=== PATIENT | male | born 1995 | race African-American/Black ===

== ENCOUNTER 2022-03-18 13:53 | Emergency (ER) | payer MEDICAID ==
[~2022-03-18] VITALS: Ht 175.3 cm; Wt 89.0 kg
[2022-03-18 14:33] VITALS: BP 114/56
[2022-03-18] MEDS ORDERED: LIDOCAINE HCL 1% 20ML VIAL (Pyxis) INJ INFIL ONE (16:00)
[2022-03-18] MEDS ORDERED: CEFTRIAXONE SODIUM 500 MG/VIAL IM ONE (16:00)
[2022-03-18] MEDS ORDERED: LIDOCAINE HCL 1% 10 MG/ML 10ML VIAL INJ SCH (16:15)
[2022-03-18] MEDS ORDERED: DOXY-326 PO (16:22)
[2022-03-18 16:41] LABS: CLARITY URINE CLEAR (CLEAR); COLOR URINE YELLOW (YELLOW); KETONES URINE NEGATIVE (NEGATIVE); LEUKOCYTE ESTERASE URINE NEGATIVE (NEGATIVE); NITRITE URINE NEGATIVE (NEGATIVE); OCCULT BLOOD URINE NEGATIVE (NEGATIVE); PH URINE 7.5 (4.5-8.0); PROTEIN URINE NEGATIVE (NEGATIVE); SPECIFIC GRAVITY URINE 1.015 (1.005-1.030); UROBILINOGEN URINE 0.2 E.U./dL (0.2-1.0)
[2022-03-21 04:12] LABS: NEISSERIA GONORRHOEAE NAA Negative (Negative)
== END 2022-03-18 16:50 | disposition home or self-care (01) ==
LOC: ER 13:53
DX: N34.2 Other urethritis (principal); Z20.2 Contact with and (suspected) exposure to infections with a predominantly sexual mode of transmission
CPT/HCPCS: 81003; 87491; 87591; 96372; 99283; J0696; J3490

== ENCOUNTER 2024-03-13 10:36 | Emergency (ER) | payer MEDICAID ==
[~2024-03-13] VITALS: Ht 175.3 cm; Wt 84.0 kg
[~2024-03-13 10:36] MED LIST: DOXY100C74 PO
[2024-03-13 10:50] VITALS: O2SAT 98
[2024-03-13 14:02] LABS: CLARITY URINE CLEAR (CLEAR); COLOR URINE YELLOW (YELLOW); GLUCOSE URINE NEGATIVE (NEGATIVE); KETONES URINE 1+ (NEGATIVE); LEUKOCYTE ESTERASE URINE NEGATIVE (NEGATIVE); NITRITE URINE NEGATIVE (NEGATIVE); OCCULT BLOOD URINE NEGATIVE (NEGATIVE); PH URINE 5.5 (4.5-8.0); PROTEIN URINE NEGATIVE (NEGATIVE); SPECIFIC GRAVITY URINE 1.021 (1.005-1.030)
[2024-03-13] MEDS: AZITHROMYCIN 500 MG TABLET PO ONE (14:34)
[2024-03-13] MEDS: CEFTRIAXONE SODIUM 500MG VIAL IM ONE (14:34)
[2024-03-13 15:31] VITALS: BP 116/78; PULSE 66; RESP 16; TEMP 37.00296; O2SAT 99
== END 2024-03-13 15:32 | disposition home or self-care (01) ==
LOC: ER 10:36
DX: R30.0 Dysuria (principal); Z11.3 Encounter for screening for infections with a predominantly sexual mode of transmission; Z20.2 Contact with and (suspected) exposure to infections with a predominantly sexual mode of transmission
CPT/HCPCS: 81003; 96372; 99283; 87591; J0696; Z7610